=== PATIENT | female | born 1970 | race Caucasian/White ===

== ENCOUNTER 2023-10-26 11:18 | Emergency (ER) | payer OTHER, SELFPAY ==
[2023-10-26 11:18] VITALS: BMI 22.4
[2023-10-26 11:21] VITALS: BP 151/82
[2023-10-26] MEDS: DECADRON 10 MG IV (13:05)
[2023-10-26] MEDS: ZOSYN 50 IV (13:10)
--- NOTE | 2023-10-26 13:24 | ED.GENMED ---
History of Present Illness
General
Chief Complaint: Cold/Flu/URI Symptoms
Source: patient and records (ct scan)
Exam Limitations: none
Time Seen by Provider: 10/26/23 11:51
Nursing documentation reviewed up to this point in time: agreed with
Travel History
Have you had any contact with someone who has COVID-19?: No
Do you have any symptoms of coronavirus? Fever > 100 degrees, chills, cough, shortness of breath, sore throat, loss of taste or smell, muscle aches, or headache?: No
History of Present Illness
History of Present Illness:
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
3 months several antibiotics most recently on cefuroxime had a CAT scan 4 days ago at [facility] through an ENT told that she still had an infection and to follow-up at [facility] she is come here today for IV
antibiotics, she has no headache she does feel tired at times has fullness with some congestion in her sinuses, no chest pain or shortness of breath, has not been on steroids, apparently had a culture of her sinuses obtain results of which are
pending through [facility]
Past History
Past History
ED Past Surgical History: Other (oral surgerty)
Social History
Tobacco: Non-smoker
Alcohol: None
Drug: None
Personal:
Living: with family
Employment: Employed
Review of Systems
Review of Systems
All Other Systems: Not applicable
Constitutional: Reports fatigue; Denies fever
EENT: Reports runny nose and other (congestoin)
Respiratory: Reports no symptoms
Cardiac: Reports no symptoms
ABD/GI: Reports no symptoms
: Reports no symptoms
Musculoskeletal: Reports no symptoms
Skin: Reports no symptoms
Neurological: Denies headache
Hematologic/Lymphatic: Reports no symptoms
Psychiatric: Reports no symptoms
Phy Exam
Physical Exam
Physical Exam:
Physical Exam
General: no apparent distress, not acutely ill
Neck: Mild tenderness to palpation over the right maxilla no sinus polyps seen, tympanic membranes are clear
Heart: s1/s2 regular rate and rhythm, no murmur. equal radial pulses.
Lungs: no acute respiratory distress. clear bilaterally
Neuro: alert and oriented. no focal neurological deficits
Skin: no rash
Psychiatric: well kept. interactive and cooperative
Extremities: no edema.
Course
Orders/Labs/Results
Orders:
Orders
10/26/23 12:51
Piperacillin/Tazo 3.375 Gram [Zosyn] 3.375 gram in 50 ml IV NOW
10/26/23 12:52
Dexamethasone Sod Phosphate [Decadron] 10 mg IV NOW STA
10/26/23 12:58
CBC/With ESR Urgent
Comprehensive Metabolic Panel Urgent
Abnormal Lab Results
10/26/23
12:58
RBC 4.11 L 10^6/uL
(4.20-5.40)
Hct 36.1 L %
(37.0-47.0)
10/26/23 12:58
10/26/23 12:58
Vital Signs
Initial and Last Documented VS:
Initial Vital Signs
Temp Pulse Resp BP Pulse Ox
98.7 F 87 17 151/82 99
10/26/23 11:21 10/26/23 11:21 10/26/23 11:21 10/26/23 11:21 10/26/23 11:21
Last Documented Vital Signs
Temp Pulse Resp BP Pulse Ox
98.7 F 68 17 151/82 98
10/26/23 11:21 10/26/23 14:17 10/26/23 11:21 10/26/23 11:21 10/26/23 14:15
MDM/Problems Addressed
Differential Diagnosis Includes:
Recurrent sinusitis, osteomyelitis, doubt intracerebral process by history and physical
MDM/Problems Addressed:
Sinusitis
Chronic conditions affecting care:
Sinusitis
Acute Exacerbation and/or Progression of Chronic Illness:
Sinusitis
*Radiology
Radiology exam reviewed: other (Disc here radiology here will review)
*Pulse Oximetry
Patient hypoxic: no
*Critical Care Note
Total Time (30-74mins, 75-104mins- exclusive of procedures): Not Applicable
Data Reviewed
Review of Other/Old Records Reveals: Radiology Studies
Source: patient and spouse
Update Note
Update Note:
Patient is nontoxic recurrent issue, sounds like her primary ENT wanted her to see an ENT at a [facility] which seems reasonable, will give her dose of steroids, will try to get a report on her imaging, will try to facilitate referral to the
best of my ability
Update CT reviewed with radiology he does have an air-fluid level and sinusitis postoperative changes
Patient appears well, reviewed plan of care with her she will continue her cefuroxime will add steroids refer to see a sinus specialist at [place]
ED Attending Note
-
Portions of this chart may have been created with voice recognition software.� Occasional wrong word or��sound alike� substitutions may have occurred due to the inherent limitations of voice recognition software.
Discharge Plan
Departure
Patient Disposition: Home (Routine Discharge)
Date of Disposition: 10/26/23
Time of Disposition: 14:59
Patient with high blood pressure during this ER visit?: No
Condition: Good
Covid-19: Not Applicable
Discharge Problem:
Acute sinusitis
Instructions: Sinusitis in adults, Sinusitis, Adult ED
Prescriptions:
No Action
levothyroxine 25 MCG tablet
25 mcg PO DAILY
docusate sodium 100 MG capsule
100 mg PO BID Qty: 30 0RF
simethicone [Gas Relief 80 (simethicone)] 80 MG tablet,chewable
80 mg PO Q6 0RF
oxycodone 5 MG tablet
5 mg PO Q4HPRN PRN (Reason: moderate pain) Qty: 18 0RF
oxycodone 10 MG tablet
10 mg PO Q4HPRN PRN (Reason: severe pain when tolerating PO) 0RF
ibuprofen 600 MG tablet
600 mg PO Q4HPRN PRN (Reason: mild pain) Qty: 30 0RF
Referrals:
Maria Isabel Parker DO [Family Provider] -
Oneil Noe MD [Non-Admitting Privileges] - Next open appointment
Activity Restrictions/Additional Instructions:
Continue antibiotics, take steroids as prescribed
Follow-up with Dr. Noe learning disabilities teacher at [facility] tomorrow for an appointment
Interventions
Interventions:
*Risk Screen - Suicide Last Done: 10/26/23 11:22
*General Assessment Last Done: 10/26/23 11:22
*Neglect/Abuse Screening Last Done: 10/26/23 11:22
ED- Fall Risk Assessment Last Done: 10/26/23 13:03
*ED COVID-19 Vaccine History Last Done: 10/26/23 11:22
ED- Pulmonary Assessment Last Done: 10/26/23 13:03
Discharge Date and Time
Print Language: CYPRIOT
[2023-10-26 13:33] LABS: % Basophils 0.5 % (0-2); % Eosinophils 4.6 % (0-6); % Immature Granulocytes 0.5 % (0-0.5); % Lymphocytes 26.3 % (20.5-51.1); % Monocytes 9.3 % (1.7-9.3); % Neutrophils 58.8 % (42.2-75.2); Absolute Eosinophils 0.3 10^3/uL (0-0.7); Absolute Lymphocytes 1.6 10^3/uL (1.2-3.4); Absolute Monocytes 0.6 10^3/uL (0.1-0.6); Absolute Neutrophils 3.6 10^3/uL (1.4-6.5); Hematocrit 36.1 % (37.0-47.0); Hemoglobin 12.5 g/dL (12.0-16.0); Mean Corp Hgb Conc. 34.6 g/dL (33.0-37.0); Mean Corpuscular Hgb 30.4 pg (27.0-31.0); Mean Corpuscular Volume 87.8 fL (81.0-99.0); Mean Platelet Volume 8.8 fL (7.4-10.4); Nucleated Red Blood Cells % 0 %; Platelet Count 199 10^3/uL (130-400); Red Blood Cell Count 4.11 10^6/uL (4.20-5.40); White Blood Cell Count 6.1 10^3/uL (4.8-10.8)
[2023-10-26 13:55] LABS: Erythrocyte Sed Rate 12 mm/hour (0-20)
[2023-10-26 14:04] LABS: ALT (SGPT) 29 U/L (0-35); AST (SGOT) 32 U/L (14-36); Albumin 4.1 g/dl (3.5-5.0); Alkaline Phosphatase 60 U/L (38-126); Blood Urea Nitrogen 11 mg/dl (7-17); Calcium 9.7 mg/dl (8.4-10.2); Carbon Dioxide 26 mmol/L (22-30); Chloride 105 mmol/L (98-107); Estimated Creatinine Clearance 90 ml/min; Glucose 85 mg/dl (70-99); Potassium 4.3 mmol/L (3.5-5.1); Sodium 139 mmol/L (135-145); Total Bilirubin 0.5 mg/dl (0.2-1.3); Total Protein 6.9 g/dl (6.3-8.2); eGFR > 60.00
== END 2023-10-26 15:19 | disposition home or self-care (01) ==
LOC: EMR 11:18
PROVIDERS: EMERGENCY PHYSICIAN Emergency Medicine; FAMILY PHYSICIAN Family Medicine
DX: J01.90 Acute sinusitis, unspecified (principal); Q75.9 Congenital malformation of skull and face bones, unspecified
CPT/HCPCS: 99283; 96365; 96375; 80053; 85025; 85652